=== PATIENT | male | born 1995 | race Caucasian/White ===

== ENCOUNTER → 2016-06-01 | Outpatient (CLI) | payer OTHER ==
--- NOTE | 2016-06-01 09:50 | US ---
EXAMINATION TYPE: US kidneys/renal and bladder DATE OF EXAM: 06/01/2016 9:26 AM COMPARISON: CT CLINICAL History: abnormal KIDNEY FUNCTION EXAM MEASUREMENTS: Right Kidney: 11.2 x 4.9 x 5.1 cm Left Kidney: 11.1 x 5.1 x 4.6 cm Post Void Residual Volume: 8.7 ml ANATOMY: TECHNOLOGIST IMPRESSION: Right Kidney: wnl Left Kidney: wnl Bladder: wnl Bilateral Jets seen: yes Normal Post Void Residual: wnl There is no evidence for hydronephrosis at this point in time. No nephrolithiasis is seen. No lilliana s are identified. The urinary bladder is anechoic. Bilateral ureteral jets are seen. IMPRESSION: Unremarkable study Normal Values: Renal Length = 9 - 12cm Bladder Wall: < 0.3cm
== END | disposition home or self-care (01) ==
LOC: RADUSWWP 08:57
PROVIDERS: ATTEND Family Medicine
DX: R94.4 Abnormal results of kidney function studies (principal)
CPT/HCPCS: 76770

== ENCOUNTER 2016-06-04 09:00 | Emergency (ER) | payer OTHER ==
[2016-06-04 09:06] VITALS: RESP 18
[2016-06-04] MEDS ORDERED: KETOROLAC 30 MG/ML 1 ML VIAL IVP STA (09:20)
[2016-06-04] MEDS ORDERED: SODIUM CHLORIDE 0.9% 500 ML IV STA (09:20)
--- NOTE | 2016-06-04 09:22 | ED ---
General Adult HPI - General Chief complaint: Chest Pain Stated complaint: Chest Pain Time Seen by Provider: 06/04/16 09:09 Source: patient, EMS, RN notes reviewed Mode of arrival: EMS Limitations: no limitations - History of Present Illness Initial comments: Patient 20-year-old male with no significant past medical history, who presents by EMS with a chief complaint of chest pain. He does admit that he's been expressing symptoms on and off since January of this year. He states that he has had a "sharp" type pain that began earlier this morning. He does note that he was working out. He states was not working very hard when lifting heavy. He states his pain is a little different from the pain is been experiencing. He states been following up with family doctor. Patient does admit to a family history of cardiac disease. He states pain seems to be somewhat improved at this time. He denies any complaints or symptoms currently. Patient denies any recent fever, chills, shortness of breath, back pain, abdominal pain, nausea or vomiting, numbness or tingling, dysuria or hematuria, constipation or diarrhea, headaches or visual changes, or any other complaints. - Related Data Home Medications Medication Instructions Recorded Confirmed No Known Home Medications [No 06/04/16 06/04/16 Known Home Medications] Allergies Allergy/AdvReac Type Severity Reaction Status Date / Time No Known Allergies Allergy Verified 06/04/16 09:06 Review of Systems ROS Statement: Those systems with pertinent positive or pertinent negative responses have been documented in the HPI. ROS Other: All systems not noted in ROS Statement are negative. Past Medical History Past Medical History: No Reported History History of Any Multi-Drug Resistant Organisms: None Reported Past Surgical History: No Surgical Hx Reported Past Psychological History: No Psychological Hx Reported Smoking Status: Never smoker Past Alcohol Use History: Rare Past Drug Use History: None Reported General Exam - General Exam Comments Initial Comments: General: The patient is awake and alert, in no distress, and does not appear acutely ill. Eye: Pupils are equal, round and reactive to light, extra-ocular movements are intact. No nystagmus. There is normal conjunctiva bilaterally. No signs of icterus. Ears, nose, mouth and throat: There are moist mucous membranes and no oral lesions. Neck: The neck is supple, there is no tenderness or JVD. Cardiovascular: There is a regular rate and rhythm. No murmur, rub or gallop is appreciated. Patient's pain reproducible on palpation to the anterior chest wall Respiratory: Lungs are clear to auscultation, respirations are non-labored, breath sounds are equal. No wheezes, stridor, rales, or rhonchi. Gastrointestinal: Soft, non-distended, non-tender abdomen without masses or organomegaly noted. There is no rebound or guarding present. No CVA tenderness. Bowel sounds are unremarkable. Musculoskeletal: Normal ROM, no tenderness. Strength 5/5. Sensation intact. Pulses equal bilaterally 2+. Neurological: A&O x 3. CN II-XII intact, There are no obvious motor or sensory deficits. Coordination appears grossly intact. Speech is normal. Skin: Skin is warm and dry and no rashes or lesions are noted. Psychiatric: Cooperative, appropriate mood & affect, normal judgment. Limitations: no limitations Course Vital Signs 06/04/16 06/04/16 06/04/16 09:04 09:07 10:30 Temperature 97.3 F L Pulse Rate 76 80 Pulse Rate [ 78 Apical] Respiratory 18 18 Rate Blood Pressure 150/63 150/63 O2 Sat by Pulse 98 Oximetry EKG Findings - EKG Comments: EKG Findings:: EKG performed at 0907: A 12-lead EKG was performed and interpreted by me as showing the following: Rate is 79, and rhythm is normal sinus. There are normal QRS complexes and normal R-wave progression. ST segments have no elevation or depression, and LA segments appear normal. Medical Decision Making - Medical Decision Making Patient reexamined at this time shows no signs of distress. Patient's labs been reviewed does show elevated CPK. Patients troponin Negative. Patient refused on palpation to the anterior chest wall. Patient's x-ray unremarkable. Patient advised follow-up with the family doctor. Advised to discontinue workout supplements. The skin. Options of home thermometer. Patient does admit that he has an appointment with his family doctor coming up in the next 2 days. Patient denies any other complaints currently. Will be discharged home advised return if any symptoms increase or worsen or for any other concerns. - Lab Data Result diagrams: 06/04/16 09:10 06/04/16 09:10 Lab Results 06/04/16 06/04/16 06/04/16 Range/Units 09:10 09:10 09:10 WBC 7.0 (3.8-10.6) k/uL RBC 5.23 (4.30-5.90) m/uL Hgb 15.0 (13.0-17.5) gm/dL Hct 46.4 (39.0-53.0) % MCV 88.8 (80.0-100.0) fL MCH 28.7 (25.0-35.0) pg MCHC 32.4 (31.0-37.0) g/dL RDW 12.5 (11.5-15.5) % Plt Count 172 (150-450) k/uL Neutrophils % 48 % Lymphocytes % 39 % Monocytes % 8 % Eosinophils % 1 % Basophils % 1 % Neutrophils # 3.4 (1.3-7.7) k/uL Lymphocytes # 2.7 (1.0-4.8) k/uL Monocytes # 0.5 (0-1.0) k/uL Eosinophils # 0.1 (0-0.7) k/uL Basophils # 0.1 (0-0.2) k/uL Sodium 139 (137-145) mmol/L Potassium 4.1 (3.5-5.1) mmol/L Chloride 100 (98-107) mmol/L Carbon Dioxide 27 (22-30) mmol/L Anion Gap 12 mmol/L BUN 34 H (9-20) mg/dL Creatinine 1.05 (0.66-1.25) mg/dL Est GFR (MDRD) Af Amer >60 (>60 ml/min/1.73 sqM) Est GFR (MDRD) Non-Af >60 (>60 ml/min/1.73 sqM) Glucose 95 (74-99) mg/dL Calcium 9.7 (8.4-10.2) mg/dL Total Creatine Kinase 363 H (55-170) U/L CK-MB (CK-2) 3.0 H* (0.0-2.4) ng/mL CK-MB (CK-2) Rel Index 0.8 Troponin I <0.012 (0.000-0.034) ng/mL Disposition Clinical Impression: Chest wall pain Disposition: HOME SELF-CARE Condition: Stable Instructions: Chest Wall Pain (ED) Additional Instructions: Please discontinue workout supplements. Please follow family doctor over the next 1-2 days. Please return here to the emergency room if any symptoms increase or worsen or for any other concerns as discussed. Time of Disposition: 10:39
[2016-06-04 09:35] LABS: Basophils # (A) 0.1 k/uL (0-0.2); Basophils % (A) 1 %; CH 30.2; CHCM 34.1; Eosinophils # (A) 0.1 k/uL (0-0.7); Eosinophils % (A) 1 %; HCT 46.4 % (39.0-53.0); HDW 2.25; Luc # (Auto) 0.23; Luc % (Auto) 3; Lymphocytes # (A) 2.7 k/uL (1.0-4.8); Lymphocytes % (A) 39 %; MCH 28.7 pg (25.0-35.0); MCHC 32.4 g/dL (31.0-37.0); MCV 88.8 fL (80.0-100.0); Mean Platelet Volume 8.5; Monocytes # (A) 0.5 k/uL (0-1.0); Monocytes % (A) 8 %; Neutrophils # (A) 3.4 k/uL (1.3-7.7); Neutrophils % (A) 48 %; RBC 5.23 m/uL (4.30-5.90); RDW 12.5 % (11.5-15.5); WBC (Perox) 6.87
--- NOTE | 2016-06-04 09:40 | XR ---
EXAMINATION TYPE: XR chest 2V DATE OF EXAM: 06/04/2016 9:34 AM COMPARISON: Prior chest x-ray August 21, 2014. HISTORY: Chest pain per order. TECHNIQUE: Frontal and lateral views of the chest are obtained. FINDINGS: There is no focal air space opacity, pleural effusion, or pneumothorax seen. The cardiac silhouette size is within normal limits. The osseous structures are intact. IMPRESSION: No acute process. No significant change from prior.
[2016-06-04 09:46] LABS: Anion Gap 12 mmol/L; Blood Urea Nitrogen 34 mg/dL (9-20); Calcium 9.7 mg/dL (8.4-10.2); Carbon Dioxide 27 mmol/L (22-30); Chloride 100 mmol/L (98-107); Glucose 95 mg/dL (74-99); Non-African American GFR(MDRD) >60 (>60 ml/min/1.73 sqM); Potassium 4.1 mmol/L (3.5-5.1); Sodium 139 mmol/L (137-145)
[2016-06-04 09:59] LABS: Creatine Kinase 363 U/L (55-170)
[2016-06-04 10:12] LABS: Troponin I <0.012 ng/mL (0.000-0.034)
[2016-06-04 10:52] VITALS: BP 139/65; PULSE 73; TEMP 97.6
== END 2016-06-04 10:51 | disposition home or self-care (01) ==
LOC: EC 09:00
DX: R07.89 Other chest pain (principal); Z82.49 Family history of ischemic heart disease and other diseases of the circulatory system
CPT/HCPCS: 99285; 96374; 36415; 93005; 80048; 82550; 82553; 84484; 85025; 71020; J1885

== ENCOUNTER → 2016-06-23 | Outpatient (CLI) | payer OTHER ==
--- NOTE | 2016-06-26 08:28 | ECHOS ---
DATE OF SERVICE: 06/23/2016 AGE: 20Y SEX: M HT: 73 WT: 235 lbs. Protocol Radu: X Others: Stress Echo Stage: V Dur. of Exercise: 13:45 *Heart Rate Blood Pressure *Rest: 70 Rest: 109/44 * *Max. Achieved: 175 Maximum BP: 155/64 85% PMHR: 169 100% PMHR: 199 *METS: 13.8 INDICATIONS: Chest pain, palpitations. MEDICATIONS: Mr. Herman is a 20-year-old gentleman being evaluated for symptoms of chest pain with history of hypertension. Baseline EKG showed sinus rhythm with normal NM interval and QRS duration. Blood pressure at rest is 109/44 with a pulse rate of 70. Patient walked on the Radu protocol for 13 minutes and 45 seconds, achieving a maximum heart rate of 175 with a blood pressure of 155/64. EKGs taken during and after the exercise did not reveal any changes to suggest ischemia. ECHO DATA: Baseline echo images showed normal wall motion and thickening. Exercise echo images showed augmentation of the wall motion and thickening in all the segments. FINAL IMPRESSION: 1. Excellent exercise capacity. 2. Negative stress test. 3. Negative stress echo.
== END | disposition home or self-care (01) ==
LOC: RADNMMAIN 10:31
PROVIDERS: ATTEND Family Medicine
DX: R07.9 Chest pain, unspecified (principal); R00.2 Palpitations
CPT/HCPCS: 93017; 93225; 93226; 93350

== ENCOUNTER 2017-01-03 21:23 | Emergency (ER) | payer OTHER ==
[2017-01-03 21:31] VITALS: BP 142/70; PULSE 71; RESP 18; TEMP 98.2
--- NOTE | 2017-01-03 21:48 | ED ---
General Adult HPI - General Chief complaint: Extremity Injury, Upper Stated complaint: [facility]-Wrist Injury Time Seen by Provider: 01/03/17 21:38 Source: patient, RN notes reviewed Mode of arrival: ambulatory Limitations: no limitations - History of Present Illness Initial comments: 21-year-old male presents to the emergency Department chief complaint of area swelling and bleeding to left wrist. Patient was at work trying to remove some glass and he looked down and he noticed a small area of swelling with some bleeding from the area so they were concerned that he may have a piece of brass in his wrist. Patient denies any numbness or tingling. Patient denies any pain. Patient states he has full range motion of left wrist. Patient concerned due to the bleeding and work sent him in.Patient denies any recent fever, chills, shortness of breath, chest pain, back pain, abdominal pain, nausea vomiting, numbness or tingling, dysuria or hematuria, constipation or diarrhea, headaches or visual changes, or any other current symptoms. - Related Data Previous Rx's Medication Instructions Recorded Cephalexin [Keflex] 500 mg PO Q6HR 5 Days 01/03/17 Allergies Allergy/AdvReac Type Severity Reaction Status Date / Time amoxicillin Allergy Rash/Hives Verified 01/03/17 21:46 Review of Systems ROS Statement: Those systems with pertinent positive or pertinent negative responses have been documented in the HPI. ROS Other: All systems not noted in ROS Statement are negative. Past Medical History Past Medical History: No Reported History History of Any Multi-Drug Resistant Organisms: None Reported Past Surgical History: No Surgical Hx Reported Past Psychological History: No Psychological Hx Reported Smoking Status: Never smoker Past Alcohol Use History: Rare Past Drug Use History: None Reported General Exam Limitations: no limitations ENT exam: Present: normal exam, mucous membranes moist Neck exam: Present: normal inspection. Absent: tenderness, meningismus, lymphadenopathy Respiratory exam: Present: normal lung sounds bilaterally. Absent: respiratory distress, wheezes, rales, rhonchi, stridor Cardiovascular Exam: Present: regular rate, normal rhythm, normal heart sounds. Absent: systolic murmur, diastolic murmur, rubs, gallop, clicks Left Upper Arm exam: Present: normal inspection, full ROM. Absent: tenderness, swelling Elbow exam: Present: normal inspection, full ROM. Absent: tenderness, swelling Forearm Wrist exam: Present: normal inspection, full ROM. Absent: tenderness, swelling Hand Wrist exam: Present: full ROM, tenderness (Over a small hematoma. To the left wrist), swelling (Over the small hematoma area to the left wrist), other ( Smaller bleeding to the center of the hematoma to the left wrist) Neurosensory exam: Present: radial nerve intact, ulnar nerve intact, median nerve intact Vascular: Present: normal capillary refill. Absent: vascular compromise Neurological exam: Present: alert, oriented X3 Psychiatric exam: Present: normal affect, normal mood Course Vital Signs 01/03/17 21:29 Temperature 98.2 F Pulse Rate 71 Respiratory 18 Rate Blood Pressure 142/70 O2 Sat by Pulse 99 Oximetry Medical Decision Making - Medical Decision Making 21-year-old male presents emergency department with concern for hematoma to the Of left wrist. We discussed that he has a hematoma with associated puncture type wound. X-ray results were reviewed by me and it does show concern for retained foreign body. We discussed Motrin Tylenol we discussed care we discussed return parameters and follow-up. We discussed all patient's questions. He will be discharged. - Radiology Data Radiology results: report reviewed, image reviewed Disposition Clinical Impression: Traumatic hematoma of left wrist, Puncture wound of left wrist, Retained foreign body Disposition: HOME SELF-CARE Condition: Stable Instructions: Hematoma (ED) Additional Instructions: Apply ice to the area. Motrin Tylenol for pain. Watch for signs of infection. Any worsening or change in symptoms. Return to the emergency department. Prescriptions: Cephalexin [Keflex] 500 mg PO Q6HR 5 Days Referrals: Myke Mccormick Jr, DO [Primary Care Provider] - 1-2 days Time of Disposition: 22:06
--- NOTE | 2017-01-03 22:04 | XR ---
EXAMINATION TYPE: XR wrist complete LT DATE OF EXAM: 01/03/2017 CLINICAL HISTORY: Left wrist pain and swelling after injury. TECHNIQUE: Frontal, lateral, scaphoid, and oblique images of the left wrist are obtained. COMPARISON: None FINDINGS: There is no acute fracture/dislocation evident in the left wrist. The joint spaces in the left wrist appear within normal limits. The overlying soft tissue appears unremarkable. IMPRESSION: There is no acute fracture or dislocation in the left wrist.
[2017-01-03] MEDS ORDERED: CEPHALEXIN 500MG STARTER PACK 4 CAP BTL PO STA (22:06)
== END 2017-01-03 22:17 | disposition home or self-care (01) ==
LOC: EC 21:23
DX: S61.542A Puncture wound with foreign body of left wrist, initial encounter (principal); Z88.0 Allergy status to penicillin; W25.XXXA Contact with sharp glass, initial encounter; Y92.69 Other specified industrial and construction area as the place of occurrence of the external cause; Y99.0 Civilian activity done for income or pay
CPT/HCPCS: 99283

== ENCOUNTER 2017-01-04 21:34 | Emergency (ER) | payer OTHER ==
[2017-01-04 22:04] VITALS: BP 133/103; PULSE 73; RESP 18; TEMP 98.8
[2017-01-04] MEDS ORDERED: HYDROcodone/APAP 5-325MG 1 EACH TAB PO STA (22:09)
[2017-01-04] MEDS ORDERED: DIPH,PERTUS(ACELL)TETVAC-LF 0.5 ML VIAL IM ONE (22:11)
[2017-01-04] MEDS ORDERED: GELATIN SPONGE,ABSORB (SMALL) 1 EACH SPONGE TOPICAL STA (22:45)
[2017-01-04] MEDS ORDERED: ceFAZolin 1,000 MG VIAL IM STA ×2 (22:49→22:59)
--- NOTE | 2017-01-04 22:59 | ED ---
Wound/Laceration HPI - General Chief Complaint: Wound/Laceration Stated Complaint: finger injury-[facility] Time Seen by Provider: 01/04/17 22:05 Source: patient Mode of arrival: ambulatory Limitations: no limitations - History of Present Illness Initial Comments: 21-year-old male patient presents to emergency department today for evaluation of an injury to the left third and fourth finger. Patient states that he was lifting about 2000 pounds using a reeves machine when the chain came around and crushed his third and fourth fingers. Patient states that the tip of the fourth finger is gone. Patient denies any injury to the hand or wrist. Patient states he does feel some numbness to the third and fourth fingers. Bleeding is controlled at this time. Patient denies any other injuries or physical symptoms at this time. Denies any headache, neck pain, back pain, chest pain, shortness of breath, abdominal pain, nausea, vomiting, or difficulties with urination or bowel movements. - Related Data Previous Rx's Medication Instructions Recorded Cephalexin [Keflex] 500 mg PO Q6HR 5 Days 01/03/17 Hydrocodone/Acetaminophen [[place] 1 tab PO Q6HR PRN #20 tab 01/04/17 5-325] Allergies Allergy/AdvReac Type Severity Reaction Status Date / Time amoxicillin Allergy Rash/Hives Verified 01/04/17 22:02 Review of Systems ROS Statement: Those systems with pertinent positive or pertinent negative responses have been documented in the HPI. ROS Other: All systems not noted in ROS Statement are negative. Past Medical History Past Medical History: No Reported History History of Any Multi-Drug Resistant Organisms: None Reported Past Surgical History: No Surgical Hx Reported Past Psychological History: No Psychological Hx Reported Smoking Status: Never smoker Past Alcohol Use History: Rare Past Drug Use History: None Reported General Exam Limitations: no limitations General appearance: alert, in no apparent distress Head exam: Present: atraumatic, normocephalic, normal inspection Eye exam: Present: normal appearance, PERRL, EOMI. Absent: scleral icterus, conjunctival injection, periorbital swelling Neck exam: Present: normal inspection. Absent: tenderness, meningismus, lymphadenopathy Respiratory exam: Present: normal lung sounds bilaterally. Absent: respiratory distress, wheezes, rales, rhonchi, stridor Cardiovascular Exam: Present: regular rate, normal rhythm, normal heart sounds. Absent: systolic murmur, diastolic murmur, rubs, gallop, clicks Extremities exam: Present: other (Third finger left hand shows abrasion over the DIP joint, nail avulsion present however . Fourth finger left hand shows fingertip amputation, nail avulsion present, nail completely absent. Skin is pink, warm, and dry. No injury to hand or wrist noted. Full range of motion of wrists without pain or limitation.) Back exam: Present: normal inspection Neurological exam: Present: alert, oriented X3, CN II-XII intact Psychiatric exam: Present: normal affect, normal mood Skin exam: Present: warm, dry, intact, normal color. Absent: rash Course Vital Signs 01/04/17 22:00 Temperature 98.8 F Pulse Rate 73 Respiratory 18 Rate Blood Pressure 133/103 O2 Sat by Pulse 99 Oximetry Medical Decision Making - Medical Decision Making 21-year-old male patient presented today for evaluation of left third and fourth finger injury. X-ray did show that the fourth finger did have a distal phalanx fracture consistent with fingertip amputation. Physical exam did show: Fingertip amputation, and nail avulsion to the fourth finger. Third finger did exhibit a nail avulsion however nail is still attached at the proximal nail fold. Patient was given an injection of Ancef. I was aware of his amoxicillin ALLERGY however patient has previously tolerated Keflex without any difficulties. Gelfoam was applied to the distal tip of the fourth finger on the left hand, tube gauze applied with a thickness to also act as a splint. Tube gauze was also applied to the third finger left hand, bacitracin applied prior to gauze application. Patient updated on his tetanus shot. Patient was seen as a patient here yesterday and did receive a prescription for Keflex at that time. Patient has been instructed and educated regarding importance of completing Keflex antibiotic. Patient instructed to call [facility] in the morning for an appointment. Copy of the xray given for follow up appointment. Patient instructed to return for any new, worsening, or concerning symptoms including recurrent bleeding. Patient instructed to follow up with his primary care physician for recheck in 1-2 days and is unable to get in to see master lay out specialist. Patient verbalized understanding and agreed with this plan. Disposition Clinical Impression: Traumatic amputation of fingertip, Nail avulsion, finger Disposition: HOME SELF-CARE Condition: Good Instructions: Finger Amputation (ED), Nail Avulsion (ED) Additional Instructions: Keep Gelfoam in place until falls off on its own. If you have any issues with recurrent bleeding return to the emergency department immediately. Follow-up with [facility] tomorrow for evaluation. Take pain medications as directed. Complete full prescription of antibiotic to prevent infection. Return for any new, worsening, or concerning symptoms. Prescriptions: Hydrocodone/Acetaminophen [[place] 5-325] 1 tab PO Q6HR PRN #20 tab PRN Reason: Pain Referrals: Myke Mccormick Jr, DO [Primary Care Provider] - 1-2 days Deacon Hodges MD [Medical Doctor] - 1-2 days Time of Disposition: 23:25
--- NOTE | 2017-01-04 23:02 | XR ---
EXAM: XR Left Finger(s), 2 or More Views CLINICAL HISTORY: Reason: Pain TECHNIQUE: Frontal, lateral and oblique views of finger(s) of the left hand. COMPARISON: No relevant prior studies available. FINDINGS: Bones/joints: Avulsion of the tip of the fourth digit distal phalanx tuft and overlying soft tissues. Small fracture fragment is present at the radial aspect. No dislocation. Soft tissues: No radiopaque foreign body. IMPRESSION: Avulsion of the tip of the fourth digit distal phalanx tuft and overlying soft tissues. Small fracture fragment is present at the radial aspect.
== END 2017-01-04 23:36 | disposition home or self-care (01) ==
LOC: EC 21:34
DX: S68.115A Complete traumatic metacarpophalangeal amputation of left ring finger, initial encounter (principal); S60.413A Abrasion of left middle finger, initial encounter; Z88.0 Allergy status to penicillin; Z23 Encounter for immunization; W23.0XXA Caught, crushed, jammed, or pinched between moving objects, initial encounter; Y93.89 Activity, other specified; Y92.69 Other specified industrial and construction area as the place of occurrence of the external cause
CPT/HCPCS: 99283; 90471; 96372; 73140; 90715; J0690

== ENCOUNTER 2020-08-09 10:27 | Emergency (ER) | payer OTHER ==
[2020-08-09 11:18] VITALS: RESP 18
[2020-08-09] MEDS ORDERED: ACETAMINOPHEN TAB 500 MG TAB PO STA (11:56)
[2020-08-09] MEDS ORDERED: IBUPROFEN 600 MG TAB PO STA (11:56)
--- NOTE | 2020-08-09 11:58 | ED ---
General Adult HPI - General Chief complaint: Nausea/Vomiting/Diarrhea Stated complaint: nausea/headache/SOB Time Seen by Provider: 08/09/20 11:37 Source: patient Mode of arrival: ambulatory Limitations: no limitations - History of Present Illness Initial comments: 24-year-old male presents to the emergency room for "not feeling well." Patient reports that last night he started to just feel little nauseous. He had a slight cough. He didn't sleep well and very weak. Patient states he checked his temperature work and it was 99. Patient states he has taken a home and they wanted him to be evaluated. Patient presents to the ER. Patient denies abdominal pain. Denies diarrhea or vomiting. Denies chest pain or shortness of breath.Patient is not taking Motrin or Tylenol today.Patient has no other complaints at this time including shortness of breath, chest pain, abdominal pain, nausea or vomiting, headache, or visual changes. - Related Data Home Medications Medication Instructions Recorded Confirmed No Known Home Medications 08/09/20 08/09/20 Allergies Allergy/AdvReac Type Severity Reaction Status Date / Time amoxicillin Allergy Rash/Hives Verified 08/09/20 13:41 Review of Systems ROS Statement: Those systems with pertinent positive or pertinent negative responses have been documented in the HPI. ROS Other: All systems not noted in ROS Statement are negative. Past Medical History Past Medical History: No Reported History History of Any Multi-Drug Resistant Organisms: None Reported Past Surgical History: No Surgical Hx Reported Additional Past Surgical History / Comment(s): left ring finger tip amputated Past Psychological History: No Psychological Hx Reported Smoking Status: Never smoker Past Alcohol Use History: Rare Past Drug Use History: None Reported General Exam Limitations: no limitations General appearance: alert, in no apparent distress Head exam: Present: atraumatic, normocephalic, normal inspection Eye exam: Present: normal appearance, PERRL, EOMI. Absent: scleral icterus, conjunctival injection, periorbital swelling ENT exam: Present: normal exam, normal oropharynx, mucous membranes moist, TM's normal bilaterally, normal external ear exam Neck exam: Present: normal inspection, full ROM. Absent: tenderness, meningismus, lymphadenopathy Respiratory exam: Present: normal lung sounds bilaterally. Absent: respiratory distress, wheezes, rales, rhonchi, stridor Cardiovascular Exam: Present: regular rate, normal rhythm, normal heart sounds. Absent: systolic murmur, diastolic murmur, rubs, gallop, clicks GI/Abdominal exam: Present: soft, normal bowel sounds. Absent: distended, tenderness, guarding, rebound, rigid Course Vital Signs 08/09/20 08/09/20 11:15 13:29 Temperature 102.5 F H 99.9 F H Pulse Rate 95 88 Respiratory 18 18 Rate Blood Pressure 129/82 149/100 O2 Sat by Pulse 97 Oximetry Medical Decision Making - Medical Decision Making Vitals are stable. Patient is febrile in the emergency room however 97% on room air. 100% when I am in the room. Lungs are clear. Coronavirus was attempted. Chest x-ray negative. Dr. Pedersen did see patient in the hospital as well. At this time I recommended giving patient antibodies. He is refusing these. He does not want to stay any longer to get these. I did discuss that this would essentially prevent him from getting very sick with life-threatening illness or patient continues to refuse. At this time patient will be discharged home with primary care follow-up. He will return here for any worsening symptoms. - Lab Data Lab Results 08/09/20 Range/Units 12:16 Coronavirus (PCR) Detected A (Not Detectd) Disposition Clinical Impression: COVID-19 Disposition: HOME SELF-CARE Condition: Good Instructions (If sedation given, give patient instructions): Coronavirus Disease 2019 (COVID-19) Additional Instructions: Please follow-up with your doctor in one to 2 days. Quarantine for at least 10 days as long as symptoms are improving and you are no longer getting fevers. Please return to the emergency room for any worsening symptoms especially shortness of breath. Is patient prescribed a controlled substance at d/c from ED?: No Referrals: Myke Mccormick Jr, [Primary Care Provider] - 1-2 days Time of Disposition: 13:52
--- NOTE | 2020-08-09 12:25 | XR ---
EXAMINATION TYPE: XR chest 1V DATE OF EXAM: 08/09/2020 COMPARISON: 09/04/2016 HISTORY: 24-year-old male with cough TECHNIQUE: Single frontal view of the chest is obtained. FINDINGS: Large patient body habitus and portable technique causing hazy densities overlying the lungs. Allowin g for this limitation, heart upper limits of normal in size. Aorta and pulmonary vasculature are with in normal limits. No laverne consolidation or pleural effusion identified. IMPRESSION: Limited, portable exam. No definite acute process.
[2020-08-09] MEDS ORDERED: BAMLANIVIMAB 700 MG in SODIUM CHLORIDE 0.9% 50 ML IVPB ONE ×4 (15:20)
[2020-08-09 17:05] VITALS: BP 179/89; PULSE 82; TEMP 98.9
== END 2020-08-09 17:05 | disposition home or self-care (01) ==
LOC: EC 10:27
DX: U07.1 COVID-19 (principal)
CPT/HCPCS: 87635; 71045; 99283; Q0239

== ENCOUNTER → 2021-06-15 | Outpatient (CLI) | payer OTHER ==
[2021-06-15 08:47] LABS: Basophils # (A) 0.1 k/uL (0-0.2); Basophils % (A) 1 %; Eosinophils # (A) 0.1 k/uL (0-0.7); Eosinophils % (A) 1 %; HCT 44.9 % (39.0-53.0); HGB 14.8 gm/dL (13.0-17.5); Lymphocytes # (A) 3.1 k/uL (1.0-4.8); Lymphocytes % (A) 36 %; MCH 30.3 pg (25.0-35.0); MCHC 32.9 g/dL (31.0-37.0); Monocytes # (A) 0.5 k/uL (0-1.0); Monocytes % (A) 6 %; Neutrophils # (A) 4.6 k/uL (1.3-7.7); Neutrophils % (A) 54 %; Platelet Count 194 k/uL (150-450); RBC 4.88 m/uL (4.30-5.90); RDW 13.3 % (11.5-15.5); WBC 8.6 k/uL (3.8-10.6)
[2021-06-15 11:12] LABS: ALT 35 U/L (4-49); AST 30 U/L (17-59); African American GFR (CKD) 86 (>60 ml/min/1.73 sqM); Albumin 4.5 g/dL (3.5-5.0); Alkaline Phosphatase 121 U/L (38-126); Anion Gap 8 mmol/L; Blood Urea Nitrogen 23 mg/dL (9-20); Calcium 9.5 mg/dL (8.4-10.2); Carbon Dioxide 25 mmol/L (22-30); Chloride 105 mmol/L (98-107); Glucose 94 mg/dL (74-99); Lipase 48 U/L (23-300); Non-African American GFR(CKD) 74 (>60 ml/min/1.73 sqM); Potassium 4.1 mmol/L (3.5-5.1); Sodium 138 mmol/L (137-145); Total Protein 8.3 g/dL (6.3-8.2)
[2021-06-15 11:13] LABS: Amylase 71 U/L (30-110)
[2021-06-15 14:56] LABS: Chol/HDL Ratio 3.31 Ratio
== END | disposition home or self-care (01) ==
LOC: RADUSWWP 07:16
PROVIDERS: ATTEND Family Medicine
DX: R10.13 Epigastric pain (principal); R10.11 Right upper quadrant pain
CPT/HCPCS: 80053; 80061; 82150; 83690; 83735; 84443; 85025

== ENCOUNTER → 2021-07-05 | Outpatient (CLI) | payer OTHER ==
--- NOTE | 2021-07-05 11:55 | US ---
EXAMINATION TYPE: US abdomen complete DATE OF EXAM: 07/05/2021 COMPARISON: NONE CLINICAL HISTORY: R10.11 RUQ PAIN,R10.13 EPIGASTRIC PAIN. RUQ pain 2-3 weeks ago with no current pain . EXAM MEASUREMENTS: Liver Length: 19.7 cm Gallbladder Wall: 0.2 cm CBD: 0.5 cm Spleen: 9.6 x 4.3 cm Right Kidney: 11.5 x 4.7 x 6.1 cm Left Kidney: 12.0 x 5.9 x 4.7 cm Pancreas: Obscured by bowel gas Liver: Increased attenuation and there is poor penetration by the ultrasound beam, liver is enlarged Gallbladder: No stones seen Evidence for sonographic Thompson's sign: No CBD: wnl Spleen: wnl Right Kidney: No hydronephrosis or masses seen Left Kidney: No hydronephrosis or masses seen Upper IVC: wnl Abd Aorta: wnl Limited exam due to patient body habitus. Possible hepatic steatosis.. The intrahepatic portion of the IVC and proximal abdominal aorta are wi thin normal limits. There is no evidence of cholelithiasis. Common bile duct is unremarkable. The visualized portions of the pancreas are homogenous. The spleen is unremarkable. Kidneys are symmetr ic and free of hydronephrosis, cortical medullary differentiation is maintained. No renal lesions ar e seen. IMPRESSION: Correlate for hepatic steatosis. Gallbladder appears contracted.
== END | disposition home or self-care (01) ==
LOC: RADUSWWP 07:17
PROVIDERS: ATTEND Family Medicine
DX: K82.0 Obstruction of gallbladder (principal)
CPT/HCPCS: 76700

== ENCOUNTER 2021-12-19 07:13 | Emergency (ER) | payer OTHER ==
[2021-12-19] MEDS ORDERED: DIPH,PERTUS(ACELL)TETVAC-LF 0.5 ML VIAL IM ONE (07:23)
[2021-12-19] MEDS ORDERED: TOPICAL SKIN ADHESIVE 1 EACH AMP TOPICAL ONE (07:27)
--- NOTE | 2021-12-19 07:32 | ED ---
Wound/Laceration HPI - General Chief Complaint: Wound/Laceration Stated Complaint: [facility] finger laceration Time Seen by Provider: 12/19/21 07:25 Source: patient, RN notes reviewed, old records reviewed Mode of arrival: ambulatory Limitations: no limitations - History of Present Illness Initial Comments: Well-appearing 26-year-old male presents ambulatory with complaints of a laceration to the tip of his left index finger today while at work. He has full range of motion. He is unsure if his tetanus shot is up-to-date. Bleeding controlled. No other injuries. -: hour(s) (1) Extremity Location: Left: Hand (Left index finger) Place: work Patient Tetanus UTD: No Context: accidental Associated Symptoms: none Treatments Prior to Arrival: bandage - Related Data Previous Rx's Medication Instructions Recorded amLODIPine [Norvasc] 5 mg PO DAILY 14 Days #14 tab 12/19/21 Allergies Allergy/AdvReac Type Severity Reaction Status Date / Time amoxicillin Allergy Rash/Hives Verified 12/19/21 07:15 Review of Systems ROS Statement: Those systems with pertinent positive or pertinent negative responses have been documented in the HPI. ROS Other: All systems not noted in ROS Statement are negative. Past Medical History Past Medical History: No Reported History History of Any Multi-Drug Resistant Organisms: None Reported Past Surgical History: No Surgical Hx Reported Additional Past Surgical History / Comment(s): left ring finger tip amputated Past Psychological History: No Psychological Hx Reported Smoking Status: Never smoker Past Alcohol Use History: Rare Past Drug Use History: None Reported General Exam Limitations: no limitations General appearance: alert, in no apparent distress Head exam: Present: atraumatic Cardiovascular Exam: Present: regular rate Left Hand Wrist exam: Present: laceration (Approximately 1 cm flap avulsion to the left index finger). Absent: swelling, abrasion, ecchymosis, erythema, amputation, nail avulsion, subungual hematoma Neurological exam: Present: alert, oriented X3, normal gait Psychiatric exam: Present: normal affect, normal mood Skin exam: Present: warm, dry, intact, normal color. Absent: cyanosis, diaphoretic, petechiae, pallor Course Vital Signs 12/19/21 12/19/21 12/19/21 07:15 07:55 08:33 Temperature 98 F 98.2 F Pulse Rate 88 89 84 Respiratory 16 18 18 Rate Blood Pressure 169/126 152/115 170/106 O2 Sat by Pulse 94 L 97 98 Oximetry Medical Decision Making - Medical Decision Making Wound was soaked in water, skin adhesive applied to the flap avulsion that was well approximated upon arrival. No concern for foreign body. No concern for fracture. Patient's tetanus shot was updated. He does have a history of hypertension but states had run out of blood pressure medication. He was given a dose of blood pressure medicine in the emergency room and given a prescription for Norvasc. He was directed to follow up with his primary care doctor for continuation of care, return to the emergency room with any new or concerning symptoms including increased pain, redness or drainage from the site Patient is agreeable to this plan of care. Case discussed with Dr. Ibarra. Disposition Clinical Impression: Laceration Disposition: HOME SELF-CARE Instructions (If sedation given, give patient instructions): Laceration (ED), Skin Adhesive Care (ED) Additional Instructions: Keep wound clean and dry for 7 days, wear splint to prevent reinjury. Do not put any ointments or lotions on wound. Return to the emergency room with any concerns of infection including redness, drainage or increased pain and swelling. Your blood pressure is elevated at this visit. Take Norvasc as prescribed once a day until seen by her primary care doctor this week to discuss your hypertension. Prescriptions: amLODIPine [Norvasc] 5 mg PO DAILY 14 Days #14 tab Is patient prescribed a controlled substance at d/c from ED?: No Referrals: Myke Mccormick Jr, DO [Primary Care Provider] - 1-2 days Time of Disposition: 07:52
[2021-12-19 08:00] VITALS: RESP 18; TEMP 98.2
[2021-12-19] MEDS ORDERED: amLODIPine 10 MG TAB PO STA (08:02)
[2021-12-19 08:34] VITALS: BP 170/106; PULSE 84
== END 2021-12-19 08:35 | disposition home or self-care (01) ==
LOC: EC 07:13
DX: S61.211A Laceration without foreign body of left index finger without damage to nail, initial encounter (principal); I10 Essential (primary) hypertension; Z79.899 Other long term (current) drug therapy; Z88.0 Allergy status to penicillin; Z23 Encounter for immunization; X58.XXXA Exposure to other specified factors, initial encounter; Y99.0 Civilian activity done for income or pay
CPT/HCPCS: 12001; 90471; 90715; 99282